=== PATIENT | male | born 1980 | race Caucasian/White ===

== ENCOUNTER 2021-11-02 01:14 | Emergency (ER) | payer SELFPAY ==
[2021-11-02 01:15] VITALS: BP 151/87; PULSE 86; RESP 18; TEMP 36.6; O2SAT 98; BMI 30.7
[2021-11-02 01:30] VITALS: BP 136/103; PULSE 70; O2SAT 95
[2021-11-02 02:00] VITALS: BP 128/70; PULSE 82; O2SAT 83
[2021-11-02 02:04] LABS: Basophils # 0.2 K/mm3 (0-0.2); Basophils % 2.7 % (0.1-2.0); Eosinophils # 0.6 K/mm3 (0.0-0.4); Eosinophils % 6.3 % (0.1-12.0); Hematocrit 41.6 % (42.0-52.0); Hemoglobin 13.7 g/dL (14.1-18.0); Lymphocytes # 2.8 K/mm3 (0.7-4.5); Lymphocytes % 31.4 % (10-50); Mean Corpuscular HGB Conc 32.9 g/dL (31.8-35.4); Mean Corpuscular Hemoglobin 28.9 pg (27.0-31.2); Mean Corpuscular Volume 87.9 fl (80-94); Mean Platelet Volume 7.9 fl (7.4-10.4); Monocytes # 0.5 K/mm3 (0.1-1.0); Monocytes % 5.5 % (1.7-9.3); Neutrophils # 4.8 K/mm3 (1.8-7.8); Platelet Count 206 K/mm3 (142-424); Red Blood Count 4.73 M/mm3 (4.60-6.20); Red Cell Distribution Width 13.4 % (11.5-17.5); White Blood Count 8.8 K/mm3 (4.8-10.8)
[2021-11-02 02:18] LABS: Alanine Aminotransferase 29 U/L (12-78); Albumin/Globulin Ratio 1.5 (1.1-1.8); Alkaline Phosphatase 109 U/L (38-126); Anion Gap 10.6 mEq/L (5-15); Aspartate Amino Transferase 28 U/L (17-59); Blood Urea Nitrogen 15 mg/dl (9-20); Carbon Dioxide 27 mmol/L (22.0-30.0); Chloride 105 mmol/L (98-107); Creatinine Clearance Estimated 116 mL/min (50-200); Estimated Glomerular Filt Rate 82 ml/min (>60); GFR (African American) 99 ML/MIN (>60); Globulin 2.6 g/dL (1.3-3.2); Glucose 134 mg/dl (74-100); Potassium 3.6 mmoL/L (3.5-5.1); Sodium 139 mmol/L (136-145); Total Protein,Serum 6.6 g/dl (6.3-8.2)
[2021-11-02 02:19] LABS: Bilirubin,Total < 0.1 mg/dl (0.2-1.3)
[2021-11-02 02:30] VITALS: BP 118/61; PULSE 76; O2SAT 90
--- NOTE | 2021-11-02 02:40 | HMH.EDSKAF ---
ED Disposition Clinical Impression: Cellulitis and abscess of foot Disposition: Home, Self-Care Condition on Discharge: Good Instructions: Cellulitis, DI for Methicillin-Resistant Staph Infection (MRSA) Additional Instructions: keep clean and use meds and see pcp for follow up Prescriptions: Minocycline HCl [Minocycline HCl 100mg Tab*] 100 mg PO BID #20 tab Transmission Status: Pending to [facility] #[id number] Referrals: Provider,Referral, [Primary Care Provider] - - Critical Care Critical Care Time: No Attestation: On 11/02/21, the high probability of a clinically significant, sudden or life threatening deterioration of the following system(s) required my full and direct attention, intervention and personal management. The time I documented below is in addition to time spent performing reported procedures but includes the following listed in this critical care notation. Medical Decision Making - Medical Records Medical records reviewed: Yes: I reviewed the patient's medical records. - Joshua Inquiry Pt receiving controlled substance: No Vital Signs: 11/02/21 01:15 Temperature 98 F Temperature Source Oral Pulse Rate [Apical] 86 Respiratory Rate 18 Blood Pressure [Right Arm] 151/87 H Blood Pressure Mean [Right Arm] 108 Blood Pressure Source [Right Arm] Automatic Cuff Blood Pressure Position [Right Arm] Sitting 02 Sat by Pulse Oximetry 98 Oxygen Delivery Method Room Air - Lab Data Lab results reviewed: Yes: I reviewed the patient's lab results. Lab Results 11/02/21 01:15: WBC 8.8, RBC 4.73, Hgb 13.7 L, Hct 41.6 L, MCV 87.9, MCH 28.9, MCHC 32.9, RDW 13.4, Plt Count 206, MPV 7.9, Neut % (Auto) 54.0, Lymph % (Auto) 31.4, Addison % (Auto) 5.5, Eos % (Auto) 6.3, Baso % (Auto) 2.7 H, Neut # (Auto) 4.8, Lymph # (Auto) 2.8, Addison # (Auto) 0.5, Eos # (Auto) 0.6 H, Baso # (Auto) 0.2 11/02/21 01:15: Sodium 139, Potassium 3.6, Chloride 105, Carbon Dioxide 27, Anion Gap 10.6, BUN 15, Creatinine 1.00, Estimated Creat Clear 116, Estimated GFR 82, Est GFR ( Amer) 99, Glucose 134 H, Calcium 9.0, Total Bilirubin < 0.1 L, AST 28, ALT 29, Alkaline Phosphatase 109, Total Protein 6.6, Albumin 4.0, Globulin 2.6, Albumin/Globulin Ratio 1.5 Result diagrams: 11/02/21 01:15 11/02/21 01:15 Orders (Tests/Meds): ED MEDICATIONS Generic Name Dose Route Start Last Admin Trade Name Freq PRN Reason Stop Dose Admin Vancomycin/PEG/NADA/Lysine/Water 1.5 gm in 300 mls @ 150 mls/hr 11/02/21 01:30 11/02/21 01:33 Vancomycin 1.5gm/300ml (Peg) Premix IV 11/02/21 03:29 150 mls/hr ONCE ONE Administration Miscellaneous 1 each 11/02/21 01:30 11/02/21 01:27 Vancomycin Consult Request * 12/02/21 01:29 1 each CONSULT [facility] Administration Mupirocin 22 gm 11/02/21 09:00 Mupirocin 2% Ointment 22gm Tube TP 12/02/21 08:59 TID [facility] Discontinued Medications Generic Name Dose Route Start Last Admin Trade Name Freq PRN Reason Stop Dose Admin Ketorolac Tromethamine 30 mg 11/02/21 01:24 11/02/21 01:33 Ketorolac 30mg/Ml Vial IV 11/02/21 01:25 30 mg ONCE ONE Administration ORDERS Category Date Time Status Wound Culture and Gram Stain Stat Micro 11/02/21 01:15 Received Medical Decision Narrative: prob mrsa cellulitis rt foot and will give abx Skin/Abscess/FB HPI - General Chief complaint: Wound/Laceration Stated complaint: spider bite Time Seen by Provider: 11/02/21 01:30 Mode of Arrival: Ambulatory Source of Information: Patient, Medical Record Limitations: No Limitations Description of Symptoms (Recalled from ER Triage Doc. by RN): Pt arrives private vehicle c c/o right foot sore with redness and pain. States that the pain started Sunday while he was at work. When he took his boot off he noticed two red open sores on his foot. Sunday he noticed that the pain had gotten worse with additional swelling and redness. Pt denies fever or any known injury to hi
[2021-11-02 03:02] VITALS: BP 117/42; PULSE 74; O2SAT 97
[2021-11-02 03:30] VITALS: BP 117/42; PULSE 74; RESP 18; TEMP 36.8; O2SAT 97
== END 2021-11-02 03:36 | disposition home or self-care (01) ==
PROVIDERS: Emergency Provider Emergency Medicine
DX: L02.611 Cutaneous abscess of right foot (principal); B95.61 Methicillin susceptible Staphylococcus aureus infection as the cause of diseases classified elsewhere; B96.89 Other specified bacterial agents as the cause of diseases classified elsewhere; Z16.11 Resistance to penicillins; Z16.39 Resistance to other specified antimicrobial drug; Z88.6 Allergy status to analgesic agent
CPT/HCPCS: 80053; 85025; 87070; 87077; 87186; 87205; 96365; 96366; 96375; 99284

== ENCOUNTER 2021-11-04 10:55 | Emergency (ER) | payer SELFPAY ==
[2021-11-04 10:56] VITALS: BMI 30.7
--- NOTE | 2021-11-04 11:02 | PC.NURSE ---
1100 ED AT BEDSIDE FOR EVALUATION
[2021-11-04 11:03] VITALS: BP 145/98; PULSE 76; RESP 20; TEMP 36.5; O2SAT 96; BMI 30.7
--- NOTE | 2021-11-04 11:16 | PC.NURSE ---
PT MEDICATED PER EMAR, NO FURTHER NEEDS AT THIS TIME
--- NOTE | 2021-11-04 11:23 | HMH.EDGENADL ---
ED Disposition Clinical Impression: Allergic reaction Qualifiers: Encounter type: initial encounter Qualified Code(s): T78.40XA - Allergy, unspecified, initial encounter Disposition: Home, Self-Care Condition on Discharge: Good Instructions: DI for Adverse Drug Reaction -- Allergic Additional Instructions: Stop the minocycline. Start the keflex (cephalexin). You can take pepcid 20 mg every 12 hours, benadryl 25 mg every 6 hours (may make you drowsy) and the steroids once a day until the swelling disappears. Take the tylenol 3s for pain, supplement with ibuprofen Prescriptions: Acetaminophen with Codeine [Tylenol with Codeine #3 tablet] 1 each PO Q8HP PRN #7 tab PRN Reason: Severe Pain Prescription Printed cephALEXin [Cephalexin 500mg Tab] 500 mg PO Q6H 4 Days #16 tab Transmission Status: Received by [facility] #[id number] predniSONE [Prednisone 50mg Tab] 50 mg PO DAILY 3 Days #3 tab Transmission Status: Received by [facility] #[id number] Referrals: Provider,Referral, [Primary Care Provider] - - Critical Care Critical Care Time: No Attestation: On 11/04/21, the high probability of a clinically significant, sudden or life threatening deterioration of the following system(s) required my full and direct attention, intervention and personal management. The time I documented below is in addition to time spent performing reported procedures but includes the following listed in this critical care notation. Medical Decision Making - Medical Records Medical records reviewed: Yes: I reviewed the patient's medical records. - Joshua Inquiry Pt receiving controlled substance: No Vital Signs: 11/04/21 11:03 11/04/21 11:50 Temperature 97.7 F Temperature Source Oral Pulse Rate 68 Pulse Rate [Brachial] 76 Respiratory Rate 20 18 Blood Pressure 121/87 Blood Pressure [Right Arm] 145/98 H Blood Pressure Mean [Right Arm] 113 Blood Pressure Source [Right Arm] Automatic Cuff Blood Pressure Position [Right Arm] Sitting 02 Sat by Pulse Oximetry 96 97 Oxygen Delivery Method Room Air Room Air - Lab Data Lab Results 11/04/21 11:10: Sodium 138, Potassium 4.1, Chloride 106, Carbon Dioxide 26, Anion Gap 10.1, BUN 14, Creatinine 0.90, Estimated Creat Clear 129, Estimated GFR 92, Est GFR ( Amer) 111, Glucose 106 H, Calcium 8.5, Total Bilirubin 0.3, AST 37 D, ALT 33, Alkaline Phosphatase 86, Total Protein 6.4, Albumin 3.9, Globulin 2.5, Albumin/Globulin Ratio 1.6 Result diagrams: 11/04/21 11:10 Orders (Tests/Meds): ED MEDICATIONS Discontinued Medications Generic Name Dose Route Start Last Admin Trade Name Shazia PRN Reason Stop Dose Admin Acetaminophen 1,000 mg 11/04/21 11:13 11/04/21 11:14 Acetaminophen 500mg Tab PO 11/04/21 11:14 1,000 mg ONCE ONE Administration Diphenhydramine HCl 25 mg 11/04/21 11:06 11/04/21 11:10 Diphenhydramine 25mg Capsule PO 11/04/21 11:07 25 mg ONCE ONE Administration Famotidine 20 mg 11/04/21 11:06 11/04/21 11:10 Famotidine 20mg Tablet PO 11/04/21 11:07 20 mg ONCE ONE Administration Prednisone 40 mg 11/04/21 11:06 11/04/21 11:10 Prednisone 20mg Tab PO 11/04/21 11:07 40 mg ONCE ONE Administration Medical Decision Narrative: The patient is a 41 year old male who presents to the ED with facial swelling and concern for allergic reaction. On exam he has very mild eyelid edema and some mild possible lip swelling. No tongue swelling, no oropharyngeal edema. No wheezes, stridor, rash, nausea, vomiting. Pt does not meet criteria for anaphylaxis. Per chart review patient is on minocycline. Could be the cause. CMP was ordered to check liver and kidney function. This was unremarkable. Patient was given 20 mg pepcid, 40 mg prednisone and 25 mg benadryl and observed in the ED. Patients antibiotic was switched to keflex. Patient had resolution of his swelling. Will discharge home with keflex and symptomatic management, giv
[2021-11-04 11:28] LABS: Alanine Aminotransferase 33 U/L (12-78); Albumin Level 3.9 g/dl (3.5-5.0); Albumin/Globulin Ratio 1.6 (1.1-1.8); Alkaline Phosphatase 86 U/L (38-126); Anion Gap 10.1 mEq/L (5-15); Aspartate Amino Transferase 37 U/L (17-59); Bilirubin,Total 0.3 mg/dl (0.2-1.3); Blood Urea Nitrogen 14 mg/dl (9-20); Calcium 8.5 mg/dl (8.4-10.2); Carbon Dioxide 26 mmol/L (22.0-30.0); Chloride 106 mmol/L (98-107); Creatinine Clearance Estimated 129 mL/min (50-200); Estimated Glomerular Filt Rate 92 ml/min (>60); GFR (African American) 111 ML/MIN (>60); Globulin 2.5 g/dL (1.3-3.2); Glucose 106 mg/dl (74-100); Potassium 4.1 mmoL/L (3.5-5.1); Sodium 138 mmol/L (136-145); Total Protein,Serum 6.4 g/dl (6.3-8.2)
[2021-11-04 11:50] VITALS: BP 121/87; PULSE 68; RESP 18; O2SAT 97
--- NOTE | 2021-11-04 11:51 | PC.NURSE ---
ED MD AT BEDSIDE TO REEVALUATE PT, AND UPDATE ON POC
[2021-11-04 12:18] VITALS: BP 129/78; PULSE 78; RESP 16; TEMP 36.6; O2SAT 98
== END 2021-11-04 12:20 | disposition home or self-care (01) ==
PROVIDERS: Emergency Provider Emergency Medicine
DX: T78.40XA Allergy, unspecified, initial encounter (principal)
CPT/HCPCS: 80053; 99283

== ENCOUNTER 2023-01-28 15:38 | Emergency (ER) | payer SELFPAY ==
[2023-01-28 15:40] VITALS: BP 145/76; PULSE 98; RESP 19; TEMP 37; O2SAT 97; BMI 30.9
[2023-01-28 16:02] VITALS: BP 145/76; PULSE 102; RESP 20; O2SAT 96
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
--- NOTE | 2023-01-28 17:37 | PC.NURSE ---
Dr. Pollack s/w pt regarding d/c
[2023-01-28 17:54] VITALS: BP 135/88; PULSE 72; RESP 18; TEMP 36.8; O2SAT 98
== END 2023-01-28 17:55 | disposition home or self-care (01) ==
PROVIDERS: Emergency Provider Student in an Organized Health Care Education/Training Program
DX: S09.90XA Unspecified injury of head, initial encounter (principal); S46.912A Strain of unspecified muscle, fascia and tendon at shoulder and upper arm level, left arm, initial encounter; S00.83XA Contusion of other part of head, initial encounter; S60.222A Contusion of left hand, initial encounter; F17.210 Nicotine dependence, cigarettes, uncomplicated; V43.52XA Car driver injured in collision with other type car in traffic accident, initial encounter; Y92.410 Unspecified street and highway as the place of occurrence of the external cause
CPT/HCPCS: 73030; 73130; 99284

== ENCOUNTER → 2023-03-01 08:22 | Outpatient (CLI) | payer BC, SELFPAY ==
--- NOTE | 2023-03-01 08:28 | XR_ITS ---
FINAL REPORT CLINICAL HISTORY: neck pain with radicular sxs bilaterally COMPARISON: None FINDINGS: AP, lateral and odontoid views of the cervical spine were obtained. There is no prior exam for comparison. There is no acute fracture or malalignment. Vertebral body height is preserved. The precervical soft tissues are normal. There is mild multilevel degenerative change identified, most pronounced at the C5-6 level. IMPRESSION: No acute osseous abnormality of the cervical spine. Mild multilevel degenerative change, most pronounced at the C5-6 level. Reviewed, Interpreted and Dictated by Karen Del Rio MD Transcribed by Colette Thakkar Authenticated and [facility]
== END ==
LOC: RAD 08:24
PROVIDERS: PCP Nurse Practitioner; Visit Provider Nurse Practitioner
DX: M54.2 Cervicalgia (principal); V89.2XXA Person injured in unspecified motor-vehicle accident, traffic, initial encounter
CPT/HCPCS: 72040

== ENCOUNTER 2023-06-14 18:52 | Outpatient (CLI) | payer BC, SELFPAY ==
[2023-06-14 18:10] LABS: Basophils # 0.1 K/mm3 (0-0.2); Eosinophils # 0.3 K/mm3 (0.0-0.4); Eosinophils % 3.8 % (0.1-12.0); Hematocrit 47.1 % (42.0-52.0); Hemoglobin 15.5 g/dL (14.1-18.0); Lymphocytes # 2.8 K/mm3 (0.7-4.5); Lymphocytes % 32.2 % (10-50); Mean Corpuscular HGB Conc 32.9 g/dL (31.8-35.4); Mean Corpuscular Hemoglobin 29.3 pg (27.0-31.2); Mean Corpuscular Volume 89.1 fl (80-94); Monocytes # 0.5 K/mm3 (0.1-1.0); Monocytes % 5.6 % (1.7-9.3); Neutrophils # 4.9 K/mm3 (1.8-7.8); Neutrophils % 57.4 % (37.0-80.0); Platelet Count 238 K/mm3 (142-424); Red Blood Count 5.29 M/mm3 (4.60-6.20); Red Cell Distribution Width 13.2 % (11.5-17.5); White Blood Count 8.6 K/mm3 (4.8-10.8)
[2023-06-14 18:24] LABS: Alanine Aminotransferase 33 U/L (12-78); Albumin Level 4.7 g/dl (3.5-5.0); Albumin/Globulin Ratio 1.7 (1.1-1.8); Alkaline Phosphatase 87 U/L (38-126); Anion Gap 13.4 mEq/L (5-15); Aspartate Amino Transferase 30 U/L (17-59); Bilirubin,Total 0.5 mg/dl (0.2-1.3); Blood Urea Nitrogen 18 mg/dl (9-20); Calcium 10.5 mg/dl (8.4-10.2); Carbon Dioxide 28 mmol/L (22.0-30.0); Chloride 103 mmol/L (98-107); Chol/HDL Ratio 5.7 (1-3.5); Cholesterol 244 mg/dl (140-200); Estimated Glomerular Filt Rate 105 ml/min (>60); GFR (African American) 126 ML/MIN (>60); Globulin 2.7 g/dL (1.3-3.2); Glucose 92 mg/dl (74-100); HDL Cholesterol 43 mg/dl (40-60); Potassium 4.4 mmoL/L (3.5-5.1); Sodium 140 mmol/L (136-145); Total Protein,Serum 7.4 g/dl (6.3-8.2); Triglycerides 282 mg/dl (30-150); VLDL Cholesterol 56 mg/dL (0-40)
[2023-06-14 18:38] LABS: Direct LDL Cholesterol 127.98 mg/dL (100-129)
[2023-06-14 18:55] LABS: Thyroid Stimulating Hormone 2.36 uIU/mL (0.465-4.68)
[2023-06-14 20:59] LABS: Creatinine,Urine Random 114 mg/dL (Not Estab.)
[2023-06-14 21:07] LABS: Microalbumin/Creatinine Ratio 9.3
[2023-06-14 21:44] LABS: Hemoglobin A1C 5.9 % (4.0-6.0)
== END 2023-06-14 23:59 ==
LOC: LAB.DROPOF 18:52
PROVIDERS: PCP Nurse Practitioner; Visit Provider Nurse Practitioner
DX: I10 Essential (primary) hypertension (principal); Z13.1 Encounter for screening for diabetes mellitus; Z13.220 Encounter for screening for lipoid disorders; Z79.899 Other long term (current) drug therapy
CPT/HCPCS: 80053; 80061; 82043; 82570; 83036; 84443; 85025

== ENCOUNTER 2023-10-27 15:28 | Emergency (ER) | payer BC, SELFPAY ==
[2023-10-27 15:27] VITALS: BP 145/91; PULSE 85; RESP 20; TEMP 37.2; O2SAT 96; BMI 29.8
[2023-10-27 15:30] VITALS: BP 158/107; PULSE 81; O2SAT 97
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
[2023-10-27] MEDS: KETOROLAC 30MG/ML VIAL 30 MG IV (15:54)
[2023-10-27] MEDS: ACETAMINOPHEN 1,000MG/100ML VIAL 1000 MG IV (15:54)
[2023-10-27] MEDS: HYDROMORPHONE 2MG/ML SYRINGE 1 MG IV (15:54)
[2023-10-27] MEDS: LACTATED RINGERS 1000ML 1,000 ML 999 ML IV (15:54)
[2023-10-27] MEDS: ONDANSETRON 4MG/2ML VIAL 4 MG IV (15:55)
[2023-10-27 16:03] VITALS: BP 139/82; PULSE 80; O2SAT 96
[2023-10-27 16:08] LABS: Microscopic, Urine URINE MICROSCOPIC (MICROSCOPIC)
[2023-10-27 16:14] LABS: Appearance,Urine CLEAR (Clear); Bilirubin,Urine Negative (Negative); Blood, Urine 3+ (Negative); Color,Urine YELLOW (Yellow); Glucose,Urine (UA) Negative (Negative); Ketones,Urine Negative (Negative); Leukocyte Esterase,Urine Negative (Negative); Nitrate,Urine Negative (Negative); PH,Urine 5.5 (5.0-8.5); Protein,Urine Negative (Negative); Specific Gravity, Urine >= 1.030 (1.005-1.030); Urobilinogen,Urine 0.2 EU/dl (0.2)
[2023-10-27] MEDS: SODIUM CHLORIDE 0.9% 10ML SYR (RAD ONLY) 10 ML IV (16:16)
[2023-10-27] MEDS: IOPAMIDOL-370 (76%);100ML BOTTLE 75 ML IV (16:16)
[2023-10-27 16:26] LABS: Bacteria,Urine Trace /lpf; RBC,Urine 20-50 #/hpf (0-3); WBC,Urine Occasional #/hpf (0-3)
[2023-10-27 16:31] VITALS: BP 127/105; PULSE 77; O2SAT 95
[2023-10-27 17:01] VITALS: BP 145/67; PULSE 69; O2SAT 98
[2023-10-27] MEDS: OXYCODONE 5MG IMMEDIATE RELEASE TABLET 5 MG PO (17:13)
[2023-10-27 17:14] LABS: Basophils # 0.1 K/mm3 (0-0.2); Basophils % 0.5 % (0.1-2.0); Eosinophils # 0.3 K/mm3 (0.0-0.4); Eosinophils % 2.3 % (0.1-12.0); Hematocrit 34.7 % (42.0-52.0); Hemoglobin 11.4 g/dL (14.1-18.0); Lymphocytes # 1.4 K/mm3 (0.7-4.5); Lymphocytes % 12.3 % (10-50); Mean Corpuscular HGB Conc 32.8 g/dL (31.8-35.4); Mean Corpuscular Hemoglobin 29.2 pg (27.0-31.2); Mean Platelet Volume 7.5 fl (7.4-10.4); Monocytes # 0.5 K/mm3 (0.1-1.0); Monocytes % 4.5 % (1.7-9.3); Neutrophils # 9.2 K/mm3 (1.8-7.8); Neutrophils % 80.5 % (37.0-80.0); Platelet Count 196 K/mm3 (142-424); Red Cell Distribution Width 13.6 % (11.5-17.5); White Blood Count 11.4 K/mm3 (4.8-10.8)
[2023-10-27 17:17] LABS: Chloride 109 mmol/L (98-107)
[2023-10-27 17:18] LABS: Potassium 4.3 mmoL/L (3.5-5.1); Sodium 138 mmol/L (136-145)
--- NOTE | 2023-10-27 17:18 | PC.NURSE ---
rounded on pt and was given a water bottle at this time,call light in reach
[2023-10-27 17:20] LABS: Alanine Aminotransferase 21 U/L (12-78); Alkaline Phosphatase 103 U/L (38-126); Aspartate Amino Transferase 23 U/L (17-59); Bilirubin,Total 0.2 mg/dl (0.2-1.3); Blood Urea Nitrogen 21 mg/dl (9-20); Creatinine Clearance Estimated 85 mL/min (50-200); Estimated Glomerular Filt Rate 60 ml/min (>60); GFR (African American) 72 ML/MIN (>60)
[2023-10-27 17:21] LABS: Albumin Level 3.6 g/dl (3.5-5.0); Albumin/Globulin Ratio 1.4 (1.1-1.8); Anion Gap 7.3 mEq/L (5-15); Calcium 8.8 mg/dl (8.4-10.2); Carbon Dioxide 26 mmol/L (22.0-30.0); Globulin 2.6 g/dL (1.3-3.2); Glucose 127 mg/dl (74-100); Lipase 31 U/L (23-300); Total Protein,Serum 6.2 g/dl (6.3-8.2)
[2023-10-27 17:45] VITALS: BP 175/67; PULSE 72; RESP 20; TEMP 36.8; O2SAT 96
== END 2023-10-27 17:52 | disposition home or self-care (01) ==
PROVIDERS: Emergency Provider Emergency Medicine
DX: N20.1 Calculus of ureter (principal); R10.32 Left lower quadrant pain; M54.59 Other low back pain; R82.71 Bacteriuria; N17.8 Other acute kidney failure; R11.0 Nausea; R30.0 Dysuria; F17.210 Nicotine dependence, cigarettes, uncomplicated
CPT/HCPCS: 74177; 80053; 81001; 83690; 85025; 96361; 96374; 96375; 99285; J0131; J1170; J1885; J2405; J7120; Q9967